=== PATIENT | male | born 1990 | race Caucasian/White ===

== ENCOUNTER 2023-06-27 09:35 | Emergency (ER) | payer BC ==
[2023-06-27 09:53] VITALS: TEMP 97.6; O2SAT 97
--- NOTE | 2023-06-27 10:06 | ERPHSYRPT ---
- History of Present Illness Time Seen by Provider: 06/27/23 09:50 Source: patient Exam Limitations: no limitations Patient Subjective Stated Complaint: C/O left rib pain/injury. Patient states he fell off a piece of equipement at work on landing on his left side on some stairs. Indicates the equipement was 4.5-5 feet off of the ground. Triage Nursing Assessment: Patient ambulated back to ER with a slow gait. He is alert and oriented. No SOB but is breathing shallow; patient states it hurts to take a deep breath. A cough is present. Bruising noted to left mid rib area. Tenderness to left mid back present. No abnormal lung sounds noted; patient with difficulty taking deep breaths. Physician History: Patient is a 32-year-old male presents to our ED for evaluation of pain to his left ribs. Patient states he fell off of equipment at work approximately 4 days ago. Patient landed on stairs. Patient injured his left rib. Since then patient has been experiencing left rib pain. Patient states his pain became worse yesterday. Pain localized to left fifth and sixth rib area. Physical exam reveals some ecchymosis at this area. No associated nausea or vomiting. No BHT or LOC. No neck pain. Cervical spine cleared clinically. Patient otherwise feels well. He voices no other complaints or concerns at this time. Patient declined pain medication Portions of this note were created with voice recognition technology. There may be grammatical, spelling, punctuation or sound alike errors Timing/Duration: day(s) (4 days ago) Severity: moderate Modifying Factors: Improves With: nothing (Pain worse with movement palpation and cough) Associated Symptoms: denies symptoms Allergies/Adverse Reactions: No Known Drug Allergies Allergy (Verified 06/27/23 09:43) Hx Tetanus, Diphtheria Vaccination/Date Given: Yes Hx Influenza Vaccination/Date Given: No Hx Pneumococcal Vaccination/Date Given: No Immunizations Up to Date: Yes Travel Risk - International Travel Have you traveled outside of the country in past 3 weeks: No - Coronavirus Screening Are you exhibiting any of the following symptoms?: Yes Symptoms: Cough: New Onset - Vaccine Status Have you recieved a Covid-19 vaccination: No - Review of Systems Constitutional: No Symptoms, No Fever, No Chills Eyes: No Symptoms Ears, Nose, & Throat: No Symptoms Respiratory: No Symptoms, No Cough, No Dyspnea Cardiac: No Symptoms, No Chest Pain, No Edema, No Syncope Abdominal/Gastrointestinal: No Symptoms, No Abdominal Pain, No Nausea, No Vomiting, No Diarrhea Genitourinary Symptoms: No Symptoms, No Dysuria Musculoskeletal: No Symptoms, No Back Pain, No Neck Pain Skin: No Symptoms, No Rash Neurological: No Symptoms, No Dizziness, No Focal Weakness, No Sensory Changes Psychological: No Symptoms Endocrine: No Symptoms Hematologic/Lymphatic: No Symptoms Immunological/Allergic: No Symptoms All Other Systems: Reviewed and Negative - Past Medical History Pertinent Past Medical History: No - Past Surgical History Past Surgical History: No - Social History Smoking Status: Current every day smoker How long have you smoked: 10 years Exposure to second hand smoke: No Drug Use: none Patient Lives Alone: No - Nursing Vital Signs Nursing Vital Signs: Initial Vital Signs Temperature 97.6 F 06/27/23 09:35 Pulse Rate 78 06/27/23 09:35 Respiratory Rate 20 06/27/23 09:35 Blood Pressure 124/87 06/27/23 09:35 O2 Sat by Pulse Oximetry 97 06/27/23 09:35 Pain Scale Pain Intensity 9 - Physical Exam General Appearance: no apparent distress, alert Eye Exam: PERRL/EOMI, eyes nml inspection Ears, Nose, Throat Exam: normal ENT inspection, TMs normal, pharynx normal, moist mucous membranes Neck Exam: normal inspection, non-tender, supple, full range of motion Respiratory Exam: normal breath sounds, lungs clear, airway intact, other (Tenderness to palpation left rib area approximately ribs 4 5 and 6. There is ecchymosis at this location. Tenderness reproduced by palpation. No open or draining lesions), No respiratory distress Cardiovascular Exam: regular rate/rhythm, normal heart sounds, normal peripheral pulses Gastrointestinal/Abdomen Exam: soft, normal bowel sounds, tenderness (Periumbilical tenderness.), No mass Back Exam: normal inspection, normal range of motion, No CVA tenderness, No vertebral tenderness Extremity Exam: normal inspection, normal range of motion, pelvis stable Neurologic Exam: alert, oriented x 3, cooperative, normal mood/affect, nml cerebellar function, nml station & gait, sensation nml, No motor deficits Skin Exam: normal color, warm, dry, No rash Lymphatic Exam: No adenopathy SpO2 Interpretation: normal SpO2: 97 O2 Delivery: Room Air - Course Nursing assessment & vital signs reviewed: Yes - CT Exams Chest CT Interpretation: Tele-radiologist Report (No acute findings) Abdomen/Pelvis CT Interpretation: Tele-radiologist Report (No acute findings) Ordered Tests: Active Orders 24 hr Category Date Time Status ABDOMEN AND PELVIS W/0 CONTRAS [CT] Stat Exams 06/27/23 10:00 Completed CHEST WITHOUT CONTRAST [CT] Stat Exams 06/27/23 10:00 Completed - Progress Progress: improved Progress Note: 32-year-old male presents to our ED for evaluation of pain to his left rib after a fall. Patient did not complain of abdominal pain upon arrival however on physical exam patient had abdominal discomfort. CT chest abdomen pelvis without contrast ordered. No acute findings observed. No rib fractures. No abdominal pathology observed. Patient reassessed. Resting comfortably. Patient declined pain medication however he requested pain prescription for home instead. A prescription for Toradol forwarded to patient's pharmacy. Patient agrees to follow-up with his primary care doctor within 48 hours for reevaluation. He voices no other complaints or concerns at this time. Portions of this note were created with voice recognition technology. There may be grammatical, spelling, punctuation or sound alike errors Complexity of problems addressed is moderate acute complicated Complex of data reviewed is moderate. Test ordered test reviewed. Results analyzed and correlated clinically with history and physical examination. Risk of complication and or risk of morbidity/mortality of patient management is moderate. A prescription for Toradol was forwarded to patient's pharmacy. Vital stable. Time spent to discharge patient is approximately 15 minutes. Plan of care established for shared decision making. No social determinants of health present impede follow-up. Portions of this note were created with voice recognition technology. There may be grammatical, spelling, punctuation or sound alike errors 06/27/23 11:31 Counseled pt/family regarding: diagnosis, need for follow-up, rad results - Departure Departure Disposition: Home Clinical Impression: Rib pain, Abdominal pain, Contusion of rib on left side Condition: Stable Critical Care Time: No Referrals: DOCTOR,NO FAMILY [Primary Care Provider] - Follow up/PCP as directed HERNANDO MCFADDEN MD [ACTIVE STAFF] - Follow up/PCP as directed Additional Instructions: Discharge/Care Plan DARLENE MOISE was seen on 06/27/23 in the Emergency Room. The patient was counseled regarding Diagnosis,Lab results, Imaging studies, need for follow up and when to return to the Emergency Room. Prescriptions given: Discharge Note I have spoken with the patient and/or caregivers. I have explained the patient's condition, diagnosis and treatment plan based on the information available to me at this time. I have answered the patient's and/or caregiver's questions and addressed any concerns. The patient and/or caregivers have as good understanding of the patient's diagnosis, condition and treatment plan as can be expected at this point. The vital signs have been stable. The patient's condition is stable and appropriate for discharge from the emergency department. The patient will pursue further outpatient evaluation with the primary care physician or other designated or consulting physician as outlined in the discharge instructions. The patient and/or caregivers are agreeable to this plan of care and follow-up instructions have been explained in detail. The patient and/or caregivers have received these instruction. The patient/and or caregivers are aware that any significant change in condition or worsening of symptoms should prompt an immediate return to this or the closest emergency department or call 911. Prescriptions: Ketorolac Trometh 10 mg Tab [TORAdol 10 MG TABLET] 10 mg PO TID 5 Days #15 tablet
--- NOTE | 2023-06-27 10:59 | XRAY ---
Indication: Pain following fall 3 days ago. Multiple contiguous axial images obtained through the abdomen and pelvis without contrast. Comparison: None CT chest reported separately. Noncontrasted stomach and bowel loops appear nonobstructed. No free fluid/air. Remaining liver, gallbladder, pancreas, spleen, adrenal glands, kidneys, ureters, bladder, and aorta appear unremarkable for noncontrast exam. Osseous structures intact. Impression: Normal CT abdomen/pelvis without contrast exam.
--- NOTE | 2023-06-27 10:59 | XRAY ---
Indication: Pain following fall 3 days ago. Multiple contiguous axial images obtained through the chest without contrast. Comparison: None Lungs inflated and clear. Heart not enlarged. Aorta is normal in course and caliber. No pathologic mediastinal lymphadenopathy. Bony thorax intact. CT abdomen/pelvis reported separately. Impression: Normal CT chest without contrast exam.
[2023-06-27 11:24] VITALS: BP 126/80; PULSE 60; RESP 17
== END 2023-06-27 11:32 | disposition home or self-care (01) ==
LOC: ED 09:35
DX: S20.212A Contusion of left front wall of thorax, initial encounter (principal); W17.89XA Other fall from one level to another, initial encounter; Y99.0 Civilian activity done for income or pay; R07.81 Pleurodynia; R10.9 Unspecified abdominal pain; Z28.310 Unvaccinated for COVID-19; Z72.0 Tobacco use
CPT/HCPCS: 71250; 74176; 99283